=== PATIENT | female | born 1975 | race Caucasian/White ===

== ENCOUNTER 2018-06-22 17:00 | Outpatient (RCR) | payer OTHER, SELFPAY | END 2018-07-23 13:00 | disposition home or self-care (01) | LOC: PT.CARL 17:00 | PROVIDERS: Visit Provider Nurse Practitioner Family | DX: S83.8X2A Sprain of other specified parts of left knee, initial encounter (principal) | CPT/HCPCS: 97010; 97014; 97033; 97110; 97163; G0283 ==

== ENCOUNTER 2019-10-27 17:00 | Outpatient (RCR) | payer BC, SELFPAY | END 2019-11-23 16:00 | disposition home or self-care (01) | LOC: PT.CARL 17:00 | PROVIDERS: PCP Nurse Practitioner Family; Visit Provider Nurse Practitioner | DX: M25.551 Pain in right hip (principal) | CPT/HCPCS: 97014; 97110; 97140; 97163; G0283 ==